=== PATIENT | female | born 1960 | race Hispanic/Latino ===

== ENCOUNTER 2018-07-24 12:56 | Observation (INO) | payer OTHER, SELFPAY ==
[2018-07-24] MEDS ORDERED: Ondansetron PF 4 MG/2 ML Vial ONE (13:38)
[2018-07-24] MEDS ORDERED: Morphine 4 MG/ML VIAL ONE (13:38)
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
--- NOTE | 2018-07-24 14:16 | RAD ---
F3 views left hand: 07/24/2018 COMPARISON: None HISTORY: Fifth digit pain, trauma, injury FINDINGS: There is a fracture involving the distal aspect of the fifth metacarpal at the base of the fifth metacarpal head. Fracture is mildly impacted and demonstrates mild volar angulation. No associa pedrito dislocation. No additional fracture identified. IMPRESSION: Impacted fracture at the base of the fifth metacarpal head with volar angulation.
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
[2018-07-24 14:52] LABS: Hemoglobin 13.5 g/dL (12.0-16.0); Mean Corpuscular HGB CONC 32.9 g/dL (32.0-36.0); Mean Corpuscular Hemoglobin 30.7 pg (27.0-31.0); Mean Corpuscular Volume 93.4 fL (78.0-98.0); Mean Platelet Volume 7.3 fL (7.4-10.4); Platelet Count 370 thou/uL (130-400); Red Blood Cell (RBC) Count 4.41 mill/uL (4.20-5.40); White Blood Cell (WBC) Count 21.8 thou/uL (4.8-10.8)
[2018-07-24] MEDS ORDERED: Lidocaine 4% Cream 5 GM TUBE w/ Tegaderm ONE (14:56)
[2018-07-24 15:05] LABS: Band 18 % (5-11); Lymphocytes 7 % (21-51); MDiff Complete? YES; Monocytes 7 % (0-10); Neutrophil 67 % (42-75); Platelet Morphology Comment Appears Adequate; RBC Morphology Normal
[2018-07-24 15:13] LABS: ALT (SGPT) 100 U/L (8-55); AST (SGOT) 122 U/L (5-34); Albumin 4.4 g/dL (3.5-5.0); Alkaline Phosphatase 134 U/L (40-150); Anion Gap 13 mmol/L (10-20); BUN (Urea Nitrogen) 11 mg/dL (9.8-20.1); Bilirubin, Total 0.6 mg/dL (0.2-1.2); Calc. Creatinine Clearance 0 mL/min (70-130); Calcium 9.6 mg/dL (7.8-10.44); Carbon Dioxide 26 mmol/L (22-29); Chloride 103 mmol/L (98-107); Estimated GFR-MDRD 75; Globulin 2.9 g/dL (2.4-3.5); Glucose 113 mg/dL (70-105); Potassium 4.6 mmol/L (3.5-5.1); Protein, Total 7.3 g/dL (6.0-8.3); Sodium 137 mmol/L (136-145)
[2018-07-24] MEDS ORDERED: Lidocaine 5% Patch TD SCH (15:15)
[2018-07-24] MEDS ORDERED: Iopamidol 370 76% 100 ML VIAL ONE (15:16)
[2018-07-24 16:20] LABS: Bilirubin Negative (Negative); Blood, Urine Small (Negative); Clarity CLEAR (Clear); Glucose, Urine (Dipstick) Negative (Negative); Leukocyte Negative (Negative); Nitrite Negative (Negative); Protein, Urine (Dipstick) Negative (Neg-Trace); Urobilinogen 0.2 mg/dL (0.2-1.0)
[2018-07-24 16:26] LABS: Bacteria/HPF None Seen HPF (None Seen); Hyaline Casts/LPF 4-6 HYALINE CAST LPF (0-3 Hyaline)
[2018-07-24 16:27] LABS: Specific Gravity, Urine 1.043 (1.002-1.036)
[2018-07-24 16:36] LABS: Transitional Epithelial 0-3 HPF (0-3)
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
[2018-07-24] MEDS ORDERED: Dextrose 50% Abboject 50 ML SYRINGE SLOW IVP PRN (17:38)
[2018-07-24] MEDS ORDERED: Ondansetron ODT 4 MG TAB PO PRN (17:38)
[2018-07-24] MEDS ORDERED: Dextrose 5% in Water 1,000 ML IV PRN (17:38)
[2018-07-24] MEDS ORDERED: Rib Fracture Protocol PO SCH (17:38)
[2018-07-24] MEDS ORDERED: Ondansetron PF 4 MG/2 ML Vial IVP PRN (17:38)
[2018-07-24] MEDS: Acetaminophen 500 MG TAB PO SCH (18:01)
[2018-07-24] MEDS: Ibuprofen 800 MG TAB PO SCH (18:01)
[2018-07-24] MEDS: traMADol HCl 50 MG TAB PO SCH (18:02)
[2018-07-24] MEDS: Sodium Chloride 0.9% 1,000 ML IV SCH (18:04)
[2018-07-24 19:55] VITALS: BMI 31.2
[2018-07-24] MEDS: Gabapentin 300 MG CAP PO SCH (22:02)
[2018-07-24] MEDS: Famotidine 20 MG TAB PO SCH (22:02)
[2018-07-24] MEDS: Cyclobenzaprine 10 MG TAB PO PRN (22:02)
[2018-07-25] MEDS: traMADol HCl 50 MG TAB PO SCH ×4 (01:17→18:16)
[2018-07-25] MEDS: Ibuprofen 800 MG TAB PO SCH ×4 (01:18→18:16)
[2018-07-25] MEDS: Acetaminophen 500 MG TAB PO SCH ×4 (01:18→18:16)
[2018-07-25] MEDS: Sodium Chloride 0.9% 1,000 ML IV SCH ×3 (02:38→18:21)
[2018-07-25] MEDS ORDERED: Lidocaine Patch Removal 1 EACH TOP SCH (03:15)
[2018-07-25 04:38] LABS: #Basophils 0.1 thou/uL (0.0-0.2); #Eosinphils 0.1 thou/uL (0.0-0.7); #Lymphocytes 1.8 thou/uL (1.20-3.40); #Monocytes 0.8 thou/uL (0.11-0.59); #Neutrophils 6.3 thou/uL (1.40-6.50); %Basophils 0.7 % (0.0-1.0); %Eosinophils 1.6 % (0.0-10.0); %Monocytes 8.9 % (0.0-10.0); %Neutrophils 68.8 % (42.0-75.0); Hemoglobin 11.3 g/dL (12.0-16.0); Mean Corpuscular Hemoglobin 30.9 pg (27.0-31.0); Mean Corpuscular Volume 93.4 fL (78.0-98.0); Mean Platelet Volume 7.3 fL (7.4-10.4); Platelet Count 293 thou/uL (130-400); RBC Distribution Width 11.9 % (11.5-14.5); Red Blood Cell (RBC) Count 3.65 mill/uL (4.20-5.40); White Blood Cell (WBC) Count 9.1 thou/uL (4.8-10.8)
[2018-07-25 04:51] LABS: Anion Gap 11 mmol/L (10-20); BUN (Urea Nitrogen) 10 mg/dL (9.8-20.1); Calc. Creatinine Clearance 100 mL/min (70-130); Calcium 8.6 mg/dL (7.8-10.44); Carbon Dioxide 25 mmol/L (22-29); Chloride 109 mmol/L (98-107); Estimated GFR-MDRD 84; Glucose 119 mg/dL (70-105); Potassium 4.2 mmol/L (3.5-5.1); Sodium 141 mmol/L (136-145)
[2018-07-25] MEDS: Gabapentin 300 MG CAP PO SCH ×3 (08:17→20:42)
[2018-07-25] MEDS: Famotidine 20 MG TAB PO SCH ×2 (08:18→20:42)
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
[2018-07-25] MEDS ORDERED: traMADol HCl 50 MG TAB PO PRN (11:12)
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
[2018-07-25] MEDS: Cyclobenzaprine 10 MG TAB PO PRN (16:10)
[2018-07-25] MEDS ORDERED: Scopolamine 1.5 mg/72 hour Patch TOP SCH (18:15)
[2018-07-26] MEDS: Ibuprofen 800 MG TAB PO SCH ×4 (00:38→18:49)
[2018-07-26] MEDS: traMADol HCl 50 MG TAB PO SCH ×4 (00:38→18:48)
[2018-07-26] MEDS: Acetaminophen 500 MG TAB PO SCH ×4 (00:38→18:48)
[2018-07-26] MEDS: Sodium Chloride 0.9% 1,000 ML IV SCH (00:40)
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
[2018-07-26] MEDS: Gabapentin 300 MG CAP PO SCH ×2 (10:22→16:59)
[2018-07-26] MEDS: Famotidine 20 MG TAB PO SCH (14:15)
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
[2018-07-26] MEDS ORDERED: Silver Sulfadiazine 1% Cream 50 GM JAR TOP SCH (21:00)
[2018-07-26] MEDS: Gabapentin 100 MG CAP PO SCH (21:35)
[2018-07-27] MEDS: Acetaminophen 500 MG TAB PO SCH ×3 (00:29→11:56)
[2018-07-27] MEDS: traMADol HCl 50 MG TAB PO SCH ×3 (00:29→11:57)
[2018-07-27] MEDS: Ibuprofen 800 MG TAB PO SCH ×3 (00:29→11:57)
[2018-07-27] MEDS ORDERED: Enoxaparin Sodium 40 MG/0.4 ML SYRINGE SC SCH (09:00)
[2018-07-27] MEDS: Gabapentin 100 MG CAP PO SCH (09:03)
[2018-07-27 12:16] VITALS: BP 149/94; TEMP 98.4
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
== END 2018-07-27 13:35 | disposition home or self-care (01) ==
LOC: ERS 12:56 → SURG B 17:33
PROVIDERS: ADMIT Surgery; ATTEND Surgery
DX: S22.22XA Fracture of body of sternum, initial encounter for closed fracture (principal); S22.42XA Multiple fractures of ribs, left side, initial encounter for closed fracture; S62.317A Displaced fracture of base of fifth metacarpal bone, left hand, initial encounter for closed fracture; G89.11 Acute pain due to trauma; J98.11 Atelectasis; K76.0 Fatty (change of) liver, not elsewhere classified; N20.0 Calculus of kidney; V47.6XXA Car passenger injured in collision with fixed or stationary object in traffic accident, initial encounter
CPT/HCPCS: 36415; 70450; 71045; 71260; 72125; 74177; 80048; 80053; 81003; 81015; 85025; 93005; 94640; 96361; 96372; 96374; 96375; 96376; G0378; G0390; J1650; J2270; J2405; J7620; Q0162; Q9967

== ENCOUNTER 2018-08-12 08:36 | Outpatient (CLI) | payer OTHER ==
--- NOTE | 2018-08-12 09:12 | RAD ---
EXAM: Chest Two Views 08/12/2018 9:08 AM HISTORY: Follow-up examination with a history of sternal fracture COMPARISON: Chest radiograph dated July 25, [address] the chest, abdomen and pelvis dated July 24, 2018. FINDINGS: Heart: Normal in size and contour. Pulmonary vessels: Normal. Costophrenic angles: Clear. Lungs: There is improved aeration of both lower lobes. No consolidation is evident. Pneumothorax: None. Osseous structures:Comminuted, mildly depressed sternal body fracture is not appreciably changed from a comparison CT dated July 24, 2018. Additional findings: None. IMPRESSION: Stable mildly depressed, comminuted sternal body fracture. There is improved aeration of both lower l obes. No acute cardiopulmonary abnormality is demonstrated.
== END 2018-08-12 08:37 | disposition home or self-care (01) ==
LOC: RAD 08:36
PROVIDERS: ATTEND Physician Assistant
DX: S22.42XD Multiple fractures of ribs, left side, subsequent encounter for fracture with routine healing (principal); S22.22XA Fracture of body of sternum, initial encounter for closed fracture
CPT/HCPCS: 71046